=== PATIENT | female | born 1985 | race Hispanic/Latino ===

== ENCOUNTER 2017-03-13 13:41 | Day surgery (SDC) | payer SELFPAY ==
[2017-03-13] MEDS ORDERED: Lactated Ringer's 1,000 ML IV SCH ×2 (15:00→15:45)
[2017-03-13 15:17] LABS: Bilirubin Negative (Negative); Blood, Urine Negative (Negative); Glucose, Urine (Dipstick) Negative (Negative); Ketone, Urine Negative (Negative); Nitrite Negative (Negative); Protein, Urine (Dipstick) Negative (Neg-Trace)
[2017-03-13 15:19] LABS: Bacteria/HPF None Seen HPF (None Seen); Hyaline Casts/LPF 4-6 HYALINE CAST LPF (0-3 Hyaline); RBC/HPF 0-3 HPF (0-3); Squamous Epithelial 0-3 HPF (0-3); WBC/HPF 0-3 HPF (0-3)
--- NOTE | 2017-03-13 15:25 | PRG ---
DATE OF SERVICE: 03/13/2017 TIME OF EVALUATION: 15:13. CERVICAL EXAM In brief, the patient has now voided, we have sent the urine for urine culture and sensitivity and u rinalysis. I performed a transvaginal cervical exam and I find her cervix to be fingertip, 30% effa jessy, -3 station. We are still awaiting the transvaginal ultrasound to give as a cervical length and an estimated weight. For now, continue IV hydration and evaluation for suspected lab or.
[2017-03-13] MEDS ORDERED: Terbutaline Sulfate 1 MG/ML VIAL ONE (16:00)
--- NOTE | 2017-03-13 16:01 | PRG ---
DATE OF SERVICE: 03/13/2017 TRANSVAGINAL ULTRASOUND REPORT In brief, the patient's transvaginal ultrasound has come back normal with a cervical length of 3.8. We are still awaiting the Fibronectin results as her cervical length is normal and she is not grossly dilated on exam, which have elected to do IV hydration for now and pain medication, but the re is no true evidence of labor at this time. We are also awaiting the ultrasound for the e stimated weight.
[2017-03-13] MEDS ORDERED: Magnesium Sulfate 20 gm/500 ml 20 GM/500 ML BAG ONE (17:25)
--- NOTE | 2017-03-13 19:24 | HP ---
TODAY'S DATE: 03/13/2017 TIME: 1455. LOCATION: Labor and Delivery. This is a patient of the Clinic. This patient has a handwritten progress note and H\T\P in the chart. For full details, please turn to that dictation. HISTORY OF PRESENT ILLNESS: In brief, this is a patient who is a multigravida at 28 weeks with suspected labor due to the fact there is no evidence of recent abdominal trauma, vaginal bleeding or ruptured membranes. We have ordered a fibronectin and transvaginal ultrasound. Cervical exam is currently pending as her bladder was full and patient is about to void before our cervical examination. If the patient does have evidence of true labor or has a positive FFN and short cervix, we will give IV magnesium sulfate as she is under 32 weeks, give steroids for lung maturation, give Ancef for GBS risk factor (PENICILLIN allergy) and we will notify NICU. We also ordered an OB ultrasound for estimated weight. Once again, this patient has a full handwritten H&P and for details, please turn to the handwritten progress note dated today at 1450. MTDD
--- NOTE | 2017-03-13 20:44 | ULT ---
OB ULTRASOUND: 03/13/17 HISTORY: Back pain. Question labor. There is a single viable intrauterine . Gestational age by ultrasound measurement is 29 wee ks, 0 days. Biometry measurements are consistent. heart rate: 133 bpm. Placenta: Anterior. Presentation: Vertex. Amniotic fluid: Adequate. ANITRA recorded at 15.8 cm. Cervical length: 3.8 cm. Limited anatomic evaluation. The intracranial contents, four chamber heart, stomach, gallbladder and cord insertion were identified. IMPRESSION: 29 week, 0 day gestation by ultrasound measurement. POS: SY
--- NOTE | 2017-03-14 00:48 | DIS ---
In brief, this patient was kept in Labor And Delivery this afternoon after being observed for threat ened labor. Her evaluation revealed a normal cervical length by ultrasound, digital cervica l examination, which revealed a cervix of closed to maximum fingertip, negative FFN, and other tex eters negative. She feels better after IV hydration, and the contractions have now spaced out. The patient states that she feels more comfortable now. As an incidental finding, we found bacterial v aginosis on VP3 testing. We will send her out on Flagyl 500 mg 1 p.o. b.i.d. for 7 days for bacteri al vaginosis. DIAGNOSES: 1. Threatened labor. 2. Reassuring status. 2. Bacterial vaginosis.
== END 2017-03-13 18:50 | disposition home or self-care (01) ==
LOC: L&D/OP 13:41
PROVIDERS: ATTEND Obstetrics & Gynecology
DX: O99.89 Other specified diseases and conditions complicating pregnancy, childbirth and the puerperium (principal); R10.9 Unspecified abdominal pain; O23.593 Infection of other part of genital tract in pregnancy, third trimester; N76.0 Acute vaginitis; B96.89 Other specified bacterial agents as the cause of diseases classified elsewhere; Z3A.28 28 weeks gestation of pregnancy; Z79.899 Other long term (current) drug therapy; Z88.0 Allergy status to penicillin; Z87.59 Personal history of other complications of pregnancy, childbirth and the puerperium
CPT/HCPCS: 76805; 81001; 82731; 87086; 87480; 87491; 87510; 87591; 87660; 96360; 96361; A4353; J3105; J3475

== ENCOUNTER 2017-05-27 12:03 | Inpatient (IN) | payer MEDICAID, OTHER, SELFPAY ==
[2017-05-27] MEDS ORDERED: Lidocaine 1% (PF) 30 ML VIAL SC PRN (13:08)
[2017-05-27] MEDS ORDERED: Promethazine HCl 25 MG/ML VIAL IM PRN (13:08)
[2017-05-27] MEDS ORDERED: Ondansetron HCl/PF 4 MG/2 ML Vial IVP PRN (13:08)
[2017-05-27] MEDS ORDERED: Ibuprofen 800 MG TAB PO PRN (13:08)
[2017-05-27] MEDS ORDERED: LR / Pitocin 40 units/1000 ml 1,000 ML IV PRN (13:08)
[2017-05-27 13:10] VITALS: BMI 26.6
[2017-05-27 13:40] LABS: Hemoglobin 10.4 g/dL (12.0-16.0); Mean Corpuscular HGB CONC 32.8 g/dL (32.0-36.0); Mean Corpuscular Hemoglobin 26.2 pg (27.0-31.0); Mean Corpuscular Volume 79.9 fl (81.0-99.0); Mean Platelet Volume 9.6 fL (7.4-10.4); Platelet Count 208 thou/uL (130-400); RBC Distribution Width 16.6 % (11.5-14.5); Red Blood Cell (RBC) Count 3.96 mill/uL (4.20-5.40)
[2017-05-27 14:10] LABS: Syphilis Antibody Nonreactive (Nonreactive); Syphilis Antibody Index 0.05 S/CO (<1.00 Non-Reactive)
[2017-05-27 14:11] LABS: Hep B Surf Ag Non-Reactive S/CO (NonReactive)
[2017-05-27] MEDS ORDERED: Milk Of Magnesia 30 ML UDCUP PO PRN (14:11)
[2017-05-27] MEDS ORDERED: Preparation H Ointment 28 GM TUBE PR PRN (14:11)
[2017-05-27] MEDS ORDERED: Bisacodyl 10 MG SUPP PR PRN (14:11)
[2017-05-27] MEDS ORDERED: diphenhydrAMINE 25 MG CAP PO PRN (14:11)
[2017-05-27] MEDS ORDERED: Lanolin Ointment 7 GM TUBE TOP PRN (14:11)
[2017-05-27] MEDS ORDERED: Benzocaine/Menthol 20-0.5% 60 ML CAN TOP PRN (14:11)
[2017-05-27] MEDS ORDERED: Measles/Mumps/Rubella 10 MCG/0.5 ML VIAL SC ONE (14:11)
[2017-05-27] MEDS ORDERED: Adacel (T-DAP) 0.5 ML VIAL IM ONE (14:11)
[2017-05-27] MEDS ORDERED: LR / Pitocin 40 units/1000 ml 1,000 ML IV SCH (14:15)
[2017-05-27] MEDS ORDERED: metroNIDAZOLE 500 MG TAB PO SCH (14:15)
--- NOTE | 2017-05-27 14:17 | PDOC.LDHP ---
Labor and Delivery H&P Chief complaint: contractions HPI: 32 yo @ 38.6wks by 8.3wk US presents with contractions since 1am. Denies loss of fluid, vaginal bleeding, or discharge. Prior OB hx 2002 term 2004 term 2007 term 2009 demise after 34 week PPROM and Polyhydramnios 2014 term Current gestational age (weeks): 38 (38.6) Due date: 06/04/16 Dating criteria: first trimester ultrasound (8.3) Grav: 6 Para: 5 (7633) OB History Details: see above Current complications: none Abnormal US findings: No Past Medical History: none Current medications: pre-matt vitamins Previous surgical history: none Allergies/Adverse Reactions: Allergies Allergy/AdvReac Type Severity Reaction Status Date / Time Penicillins Allergy Verified 09/28/14 10:50 Social history: none - Physical Exam Vital signs reviewed and normal: yes General: NAD, breathing through contractions Heart: RRR Lungs: CTAB Abdomen: gravid Extremeties: no edema FHT: category 1 [place] contractions every: 3-4 minutes - Vaginal Exam cm dilated: 8 Effacement: 100% Station: -2 - OB Labs Blood type: O RH: positive Antibody Screen: negative HIV: negative RPR: negative HEPSAg: negative 1 hour GCT: negative GBS: negative Urine drug screen: not done Rubella: non-immune - Assessment L&D Assessment: term patient in labor - Plan Plan: admit to L&D -: 32 yo @ 38.6 wks by 8.3wk US presents with contractions, admitted for active labor. Plan: 1) term IUP- expectang mgmt. declines epidural. 2) grand multiparity- uterotonics prn, inc risk PPH
--- NOTE | 2017-05-27 14:23 | PDOC.OPDEL ---
OB Operative/Delivery Note Delivery Dr/Surgeon: Dr. Miranda, Dr. Mishra Assist: Attending: Dr. Mari Pre-Delivery Diagnosis: active labor Weeks gestation: 38 (38.6) Anesthesia: none - Findings A Sex: male Weight: 3378 kg - 1 min: 9 - 5 min: 9 - Additional Findings/Plan Placenta delivered: spontaneous Repaired Obstetrical Laceration: none Estimated blood loss: 250 Post delivery plan: routine recovery
[2017-05-27] MEDS: Ferrous Sulfate 325 MG TAB PO SCH (17:10)
[2017-05-27] MEDS: metroNIDAZOLE 500 MG TAB PO SCH (21:58)
[2017-05-27] MEDS: Ibuprofen 800 MG TAB PO SCH (21:58)
[2017-05-27] MEDS: Docusate Calcium (SURFAK) 240 MG CAP PO SCH (21:58)
[2017-05-28] MEDS: Ibuprofen 800 MG TAB PO SCH ×2 (05:51→13:56)
[2017-05-28 07:40] LABS: Hemoglobin 8.7 g/dL (12.0-16.0); Mean Corpuscular HGB CONC 32.9 g/dL (32.0-36.0); Mean Corpuscular Hemoglobin 26.8 pg (27.0-31.0); Mean Corpuscular Volume 81.6 fl (81.0-99.0); Mean Platelet Volume 8.9 fL (7.4-10.4); Platelet Count 170 thou/uL (130-400); RBC Distribution Width 16.7 % (11.5-14.5); Red Blood Cell (RBC) Count 3.26 mill/uL (4.20-5.40); White Blood Cell (WBC) Count 10.2 thou/uL (4.8-10.8)
[2017-05-28] MEDS ORDERED: Non-Formulary Item 1 EACH (Pnv No.95/Ferrous Fum/Folic Ac [Prenatal Tablet] 1 TABLET) PO SCH (09:00)
[2017-05-28] MEDS ORDERED: Prenatal Vitamin 1 TAB PO SCH (09:00)
[2017-05-28] MEDS: Docusate Calcium (SURFAK) 240 MG CAP PO SCH (09:05)
[2017-05-28] MEDS: metroNIDAZOLE 500 MG TAB PO SCH (09:05)
[2017-05-28] MEDS: Ferrous Sulfate 325 MG TAB PO SCH (09:05)
[2017-05-28 13:04] VITALS: BP 97/52; TEMP 97.9
== END 2017-05-28 17:35 | disposition home or self-care (01) | DRG 775 ==
LOC: L&D/OP 12:03 → L&D 13:07 → 3SW 16:17
PROVIDERS: ADMIT Obstetrics & Gynecology Obstetrics; ATTEND Obstetrics & Gynecology Obstetrics
PROC: 10E0XZZ Delivery of Products of Conception, External Approach (ICD-10-PCS; principal; 2017-05-27)
DX: O80 Encounter for full-term uncomplicated delivery (principal); Z37.0 Single live birth; Z3A.38 38 weeks gestation of pregnancy
CPT/HCPCS: 36415; 85027; 86780; 87340; 90707; 90715; 99285; J0595; J2001